=== PATIENT | male | born 1990 | race Caucasian/White ===

== ENCOUNTER 2021-10-31 17:45 | Emergency (ER) | payer OTHER ==
[~2021-10-31] VITALS: Ht 180.3 cm; Wt 86.2 kg
[2021-10-31 18:00] VITALS: BP 171/92
== END 2021-10-31 18:39 | disposition home or self-care (01) ==
LOC: M.ERS 17:45
DX: F41.0 Panic disorder [episodic paroxysmal anxiety] (principal); F19.10 Other psychoactive substance abuse, uncomplicated